=== PATIENT | male | born 1930 | race Caucasian/White ===

== ENCOUNTER 2017-07-13 13:35 | Inpatient (IN) | payer MEDICARE, OTHER ==
[~2017-07-13] VITALS: Ht 175.3 cm; Wt 77.2 kg
[~2017-07-13 13:35] MED LIST: ACID CONTROL150 MG PO; ADULT LOW DOSE81 MG PO; AMLODIPINE BESYL5 MG PO; AMOX TR-K CLV1 EACH PO; ASPIR-LOW81 MG PO; ASPIRIN EC81 MG PO; CALCIUM + VITA1 EACH PO; CALCIUM 600 +1 EA13 PO; CEFPODOXIME PR100 MG PO; CENTRUM SILVER1 EAC3 PO; CERTAVITE SR-A1 EACH PO; DULCOLAX10 MG PR; FINASTERIDE5 MG PO; FLEET ENEMA133 ML PR; FLOMAX0.4 MG PO; GLIPIZIDE XL10 MG PO; GLUCOPHAGE1000 MG PO; LABETALOL HCL300 MG PO; LANTUS100 UNITS/ SUB-Q; LIPITOR20 MG PO; LISINOPRIL20 MG PO; METFORMIN HCL1000 MG PO; METOPROLOL TART50 MG PO; MILK OF MA400 MG/5 M PO; MIRALAX17 GM PO; MULTI VITAMIN1 EACH PO; MUPIROCIN22 GM TOP; NOVOLOG100 UNIT/1 SUB-Q; NOVOLOG100 UNITS/ SUB-Q; NYAMYC15 GM TOP; NYSTATIN1 EAC1 PO; OYSCO 500+D TA1 EACH PO; PRESERVISION A1 EACH PO; PRESERVISION L1 EACH PO; PROSCAR5 MG PO; PROTONIX40 MG PO; SAW PALMETTO 1160 MG PO; SAW PALMETTO160 MG PO; SAW PALMETTO450 MG PO; SIMVASTATIN20 MG PO
[2017-07-13] MEDS ORDERED: FLOMAX0.4 MG PO (13:59)
[2017-07-13] MEDS ORDERED: GLUCAGON EMERGEN1 MG INJ (14:00)
[2017-07-13] MEDS ORDERED: MILK OF MA400 MG/5 M PO (14:02)
[2017-07-13] MEDS ORDERED: PRESERVISION A1 EACH PO (14:04)
[2017-07-13] MEDS ORDERED: PROTONIX40 MG PO (14:05)
[2017-07-14] MEDS ORDERED: HYDROCODON-ACE1 EA11 PO (14:09)
[2017-07-14] MEDS ORDERED: PETROLATUM30 GM TOP (14:32)
--- NOTE | 2017-07-16 07:38 | DS ---
[facility] [address] [place], [place] [address] Signed DATE OF ADMISSION: 07/13/17 DATE OF DISCHARGE: 07/14/17 ADMISSION DIAGNOSIS: Right femoral neck fracture. DISCHARGE DIAGNOSIS: Right femoral neck fracture. PROCEDURE PERFORMED DURING THIS HOSPITALIZATION None. 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 He sustained a fall somewhere around July 01 and did not really complain of too much pain until about 5 days ago. He does not walk and only transfers with maximal assist. He was seen in the ER where radiographs revealed a femoral neck fracture. He was admitted to my service. Due to his status in terms of not walking, his severe CVA and inability to follow any kind of precautions, I felt that he was not a good surgical candidate. This is a valgus impacted femoral neck fracture that appears stable and he is already walked on it or moved on it for 2 weeks. I think it is not in his best interest to proceed with surgery. I discussed this with the and daughter and they agreed. He will return to the nursing facility that he has been residing in. He will continue with his usual exercises and may transfer using the left lower extremity. I did put him on [place] 7.5 mg, which has been adequately treating his pain. We will send him home on his prehospitalization medications and the [place]. He will follow up with me in 14 days. Cielo Perez MD BA/Angela /[id number] cc: Victorino Whaley DO Electronically Signed By: CIELO PEREZ MD 07/16/17 0738 PATIENT NAME: TERESO GREGG DISCHARGE SUMMARY DATE OF : 30 PHYSICIAN: CIELO PEREZ MD REPORT #: [id number] REPORT IS CONFIDENTIAL AND NOT TO BE RELEASED WITHOUT AUTHORIZATION
--- NOTE | 2017-07-16 13:14 | EKG ---
[facility] [address] [place] [address] Signed Sinus rhythm with premature atrial complexes Inferior infarct , age undetermined Abnormal ECG When compared with ECG of 21-FEB-2017 10:14, Previous ECG has undetermined rhythm, needs review Inferior infarct is now present Confirmed by JOHNNY OLSEN MD ([id number]) on 07/16/2017 1:13:54 PM Electronically Signed By: JOHNNY OLSEN MD 07/16/17 1314 PATIENT NAME: NANCY GREGG Electrocardiogram DATE OF : 30 PHYSICIAN: JOHNNY OLSEN MD REPORT #: [id number] REPORT IS CONFIDENTIAL AND NOT TO BE RELEASED WITHOUT AUTHORIZATION
== END 2017-07-14 15:25 | disposition home or self-care (01) | DRG 535 ==
LOC: ED 13:35 → MS 15:22 → DS 15:22 → MS 16:27
PROVIDERS: ADMIT Specialist
DX: S72.001A Fracture of unspecified part of neck of right femur, initial encounter for closed fracture (principal); G93.40 Encephalopathy, unspecified; I69.351 Hemiplegia and hemiparesis following cerebral infarction affecting right dominant side; W19.XXXA Unspecified fall, initial encounter; E11.9 Type 2 diabetes mellitus without complications; E78.00 Pure hypercholesterolemia, unspecified; I48.0 Paroxysmal atrial fibrillation; Z79.82 Long term (current) use of aspirin
CPT/HCPCS: 71010; 80053; 81001; 85025; 85610; 87088; 93005; 93010; 97163; 97530

== ENCOUNTER 2017-09-24 03:18 | Emergency (ER) | payer MEDICARE, OTHER ==
[~2017-09-24] VITALS: Ht 175.3 cm; Wt 77.1 kg
[~2017-09-24 03:18] MED LIST changes: +GLUCAGON EMERGEN1 MG INJ; +HYDROCODON-ACE1 EA11 PO; +PETROLATUM30 GM TOP
== END 2017-09-24 04:20 | disposition home or self-care (01) ==
LOC: ED 03:18
DX: E11.649 Type 2 diabetes mellitus with hypoglycemia without coma (principal); E78.5 Hyperlipidemia, unspecified; I10 Essential (primary) hypertension; I48.91 Unspecified atrial fibrillation; Z86.73 Personal history of transient ischemic attack (TIA), and cerebral infarction without residual deficits; Z90.49 Acquired absence of other specified parts of digestive tract; Z79.899 Other long term (current) drug therapy; Z79.82 Long term (current) use of aspirin; Z79.4 Long term (current) use of insulin
CPT/HCPCS: 99284

== ENCOUNTER 2017-10-09 08:00 | Emergency (ER) | payer MEDICARE, OTHER ==
[~2017-10-09] VITALS: Ht 175.3 cm; Wt 77.1 kg
== END 2017-10-09 11:46 | disposition home or self-care (01) ==
LOC: ED 08:00
DX: E11.649 Type 2 diabetes mellitus with hypoglycemia without coma (principal); M84.459A Pathological fracture, hip, unspecified, initial encounter for fracture; I10 Essential (primary) hypertension; Z86.73 Personal history of transient ischemic attack (TIA), and cerebral infarction without residual deficits; I48.91 Unspecified atrial fibrillation; E78.5 Hyperlipidemia, unspecified; Z87.440 Personal history of urinary (tract) infections; Z90.49 Acquired absence of other specified parts of digestive tract; Z88.8 Allergy status to other drugs, medicaments and biological substances; Z79.84 Long term (current) use of oral hypoglycemic drugs; Z79.82 Long term (current) use of aspirin; Z79.4 Long term (current) use of insulin
CPT/HCPCS: 73502; 99283

== ENCOUNTER 2017-12-20 17:51 | Observation (INO) | payer MEDICARE, OTHER ==
[~2017-12-20] VITALS: Ht 175.3 cm; Wt 73.0 kg
[~2017-12-20 17:51] MED LIST changes: -ADULT LOW DOSE81 MG PO; +CHILDREN'S ASPI81 MG PO
--- NOTE | 2017-12-20 21:09 | NUR ---
PT ARRIVED TO ROOM 109 FROM ED. PT IS KNOWN TO THIS NURSE, FROM [facility]. PT WAS "UNRESPONIVE", WAS SENT TO ER BY AMBULANCE. PT HAS HAD HIS EYES OPEN, NON-VERBAL. HAS AN INDWELLING GONZALEZ, [facility] CHANGED GONZALEZ "2-3' WEEKS AGO, AND USUSALLY GETS GONZALEZ CHANGED EVERY 3 WEEKS. HAS A OLD FX HIP, RIGHT SIDE, NON REPAIRED. IS A SIT-STAND TRANSFER, W/C BOUND. PT "LALO" HAS BEEN ILL FOR COUPLE WEEKS, AND HASN'T SEEN PT IN THAT TIME FRAME. TODAY PT SON, JUAN AND DARIEN FISCHER FROM [facility] BOTH HERE AND AWARE OF THE "COMFORT CARE STATUS". HAVE NO QUESTIONS.
--- NOTE | 2017-12-20 22:08 | NUR ---
PATIENT RESTING COMFORTABLY IN BED, BREATHING IS EVEN AND UNLABORED. FLACC SCORE OF 0. PATIENT IS NON-VERBAL. ASSESSMENT DONE, CALL LIGHT WITHIN REACH.
[2017-12-20] MEDS ORDERED: ULTRAM50 MG PO ×2 (22:41)
[2017-12-20] MEDS ORDERED: TRAZODONE HCL50 MG PO ×2 (22:44)
[2017-12-20] MEDS ORDERED: METFORMIN HCL500 MG PO ×2 (22:46)
[2017-12-20] MEDS ORDERED: OSELTAMIVIR PHO75 MG PO ×2 (22:46)
--- NOTE | 2017-12-20 22:59 | NUR ---
PATIENT RESTING COMFORTABLY IN BED, BREATHING IS EVEN AND UNLABORED. FLACC SCORE OF 0. CALL LIGHT WITHIN REACH, CALL LIGHT WITHIN REACH.
--- NOTE | 2017-12-20 23:18 | EKG ---
[facility] [address] [facility] [place] [address] Signed Sinus tachycardia with premature atrial complexes Low voltage QRS Borderline ECG When compared with ECG of 13-JUL-2017 13:56, Criteria for Inferior infarct are no longer present Nonspecific T wave abnormality no longer evident in Inferior leads Confirmed by JOHNNY OLSEN MD ([id number]) on 12/20/2017 11:17:53 PM Electronically Signed By: JOHNNY OLSEN MD 12/20/17 2318 PATIENT NAME: NANCY GREGG Electrocardiogram DATE OF : 30 PHYSICIAN: JOHNNY OLSEN MD REPORT #: [id number] REPORT IS CONFIDENTIAL AND NOT TO BE RELEASED WITHOUT AUTHORIZATION
--- NOTE | 2017-12-21 00:32 | NUR ---
PATIENT RESTING COMFORTABLY IN BED, BREATHING IS EVEN AND UNLABORED. FLACC SCORE OF 0. CALL LIGHT WITHIN REACH.
--- NOTE | 2017-12-21 01:29 | NUR ---
PATIENT RESTING COMFORTABLY IN BED, BREATHING IS EVEN AND UNLABORED. FLACC SCORE OF 0. REPOSITIONED FOR COMFORT. CALL LIGHT WITHIN REACH.
--- NOTE | 2017-12-21 02:43 | NUR ---
PATIENT RESTING COMFORTABLY IN BED, BREATHING IS EVEN AND UNLABORED. FLACC SCORE OF 0. NO APPARENT SIGNS OF DISTRESS. CALL LIGHT WITHIN REACH.
--- NOTE | 2017-12-21 03:47 | NUR ---
PATIENT REPOSITIONED IN BED FOR COMFORT. SUCTIONED SECRETIONS FROM MOUTH. APPLIED CHAPSTICK, PROVIDED MOUTH SWAB FOR COMFORT. PATIENT APPEARS COMFORTABLE, FLACC SCORE OF 0. CALL LIGHT WITHIN REACH.
--- NOTE | 2017-12-21 06:18 | NUR ---
PATIENT RESTING COMFORTABLY IN BED, BREATHING IS EVEN AND UNLABORED. REPOSITIONED FOR COMFORT. FLACC SCORE OF 0. CALL LIGHT WITHIN REACH.
--- NOTE | 2017-12-21 06:21 | NUR ---
PATIENT'S NIGHT WAS UNEVENTFUL. HE HAS BEEN RESTING COMFORTABLY IN BED THROUGHOUT SHIFT. PATIENT HAS REMAINED COMFORTABLE AND REQUIRED NO PAIN MEDICATION THROUGHOUT NIGHT. FLACC SCORE OF 0 THROUGHOUT SHIFT. PATIENT IS NON-VERBAL. PATIENT HAS A-FIB. LUNGS ARE DIM, SATS ARE APPROPRIATE ON ROOM AIR. HAS LOOSE COUGH WITH WHITE SPUTUM. HAS CHRONIC GONZALEZ. BEDBOUND AT BASELINE. HAS IV FLUIDS INFUSING. NO ACUTE CHANGES.
--- NOTE | 2017-12-21 07:29 | EKG ---
[facility] [address] [facility] [place] [address] Signed Supraventricular tachycardia Nonspecific ST and T wave abnormality Abnormal ECG When compared with ECG of 20-DEC-2017 17:54, (Unconfirmed) premature atrial complexes are no longer present Vent. rate has increased BY 52 BPM Non-specific change in ST segment in Inferior leads ST now depressed in Anterior leads Nonspecific T wave abnormality now evident in Inferior leads Nonspecific T wave abnormality now evident in Anterior leads Confirmed by JOHNNY OLSEN MD ([id number]) on 12/21/2017 7:29:22 AM Electronically Signed By: JOHNNY OLSEN MD 12/21/17 0729 PATIENT NAME: NANCY GREGG Electrocardiogram DATE OF : 30 PHYSICIAN: JOHNNY OLSEN MD REPORT #: [id number] REPORT IS CONFIDENTIAL AND NOT TO BE RELEASED WITHOUT AUTHORIZATION
--- NOTE | 2017-12-21 07:29 | EKG ---
[facility] [address] [facility] [place] [address] Signed Atrial fibrillation Low voltage QRS Nonspecific T wave abnormality Abnormal ECG When compared with ECG of 20-DEC-2017 18:20, (Unconfirmed) Atrial fibrillation has replaced Sinus rhythm Vent. rate has decreased BY 57 BPM Non-specific change in ST segment in Inferior leads ST less depressed in Anterior leads Confirmed by JOHNNY OLSEN MD ([id number]) on 12/21/2017 7:29:33 AM Electronically Signed By: JOHNNY OLSEN MD 12/21/17 0729 PATIENT NAME: NANCY GREGG Electrocardiogram DATE OF : 30 PHYSICIAN: JOHNNY OLSEN MD REPORT #: [id number] REPORT IS CONFIDENTIAL AND NOT TO BE RELEASED WITHOUT AUTHORIZATION
--- NOTE | 2017-12-21 07:45 | NUR ---
BEDSIDE REPORT RECEIVED FROM FERNANDO. PATIENT RESTING IN BED. PATIENT APPEARS TO BE SLEEPING. RESPIRATION EVEN/UNLABORED. IV FLUID AND ABX INFUSING. GONZALEZ IN PLACE DRAINING WELL. WILL CONTINUE TO MONITOR.
--- NOTE | 2017-12-21 08:35 | NUR ---
IN TO ROOM TO ASSESS PATIENT. RESPONDED TO VERBAL STIMULI. OPEN EYES WHEN DIRECTED TO. LUNGS DIM TROUGHOUT. PATIENT WAS CHANGED AND REPOSITIONED, ORAL CARE DONE. CATH CARE ALSO DONE PATIENT IS NOT VERBAL, NO ABLE TO ANSWER QUESTION. IV SITE PATENT AND FLUID INFUSING WELL. WILL CONTINUE TO MONITOR.
--- NOTE | 2017-12-21 09:05 | NUR ---
PT IN BED, HOB ELEVATED. PT ATE 90% OF BREAKFAST. PT REPORTED GENERALIZED PAIN "ALL OVER", RATED PAIN 5/10. GAVE NORCO 5/325 MG 2 TABS PO PRN.
--- NOTE | 2017-12-21 10:55 | NUR ---
PATIENT RESTING IN BED AWAKE. RESPONDED TO COMMANDS. ORAL CARE DONE. IV ABX STARTED.NO APPARENT DISTRESS. WILL CONTINUE TO MONITOR.
--- NOTE | 2017-12-21 12:41 | NUR ---
PATIENT REPOSITIONED. ORAL CARE DONE. IV SITE PATIENT, FLUID AND ABX INFUSING WELL. PATIENT OPEN EYES WHEN TALKING TO. NO DISTRESS. WILL CONTINUE TO MONITOR.
[2017-12-21] MEDS ORDERED: SENNA8.6 MG PO ×2 (13:58)
--- NOTE | 2017-12-21 14:02 | NUR ---
DR OLSEN WAS IN ROOM TO EVALUATE PATIENT. PATIENT STILL DROWZY AND SOMNOLENT.
--- NOTE | 2017-12-21 15:27 | NUR ---
PATIENT WAS REPOSITIONED, ORAL CARE DONE.
[2017-12-21] MEDS ORDERED: AMLODIPINE BESYL5 MG PO ×2 (15:55)
[2017-12-21] MEDS ORDERED: TAMSULOSIN HCL0.4 MG PO ×2 (16:00)
[2017-12-21] MEDS ORDERED: BISAC-EVAC10 MG PR ×2 (16:05)
[2017-12-21] MEDS ORDERED: EXTRA STRENGTH500 MG PO ×2 (16:06)
--- NOTE | 2017-12-21 16:07 | NUR ---
Medications reconciled by pharmacist using MARS from facility
--- NOTE | 2017-12-21 17:43 | NUR ---
PATIENT WAS CHANGED AND REPOSITIONED. ORAL CARE DONE. UPDATED FAMILY ABOUT PLAN TO DO A SWALLOW EVAL IN AM BEFORE TRYING FEEDING PATIENT.
--- NOTE | 2017-12-21 17:57 | NUR ---
PATIENT HAD A FAIR DAY. WAS REPOSITIONED EVERY 2HRS. HAD 2 BMs TODAY. CHRONIC GONZALEZ IN PLACE. LOW URINE OUTPUT. MD AWARE. PATIENT RESPOND TO COMMANDS, OPEN EYES AND SOMETIMES ANSWERED TO YES AND NO QUESTION. STILL SOMNOLENT. IV SITES PATENT, FLUID AND ABX INFUSING WELL. SWALLOW EVAL IN AM. PATIENT IS NPO AT THIS TIME. FAMILY IS WAITING ON OTHER FAMILY MEMBERS TO MAKE FINAL DECISION FOR COMFORT CARE MEASURE.
--- NOTE | 2017-12-21 19:10 | NUR ---
RECEIVED REPORT, FAMILY IN ROOM, BED RAILS UP AND CALL LIGHT IS WITHIN REACH. NO REQUESTS AT THIS TIME.
--- NOTE | 2017-12-21 22:00 | NUR ---
FAMILY IN ROOM, PT'S EYES ARE OPEN AND IS ANSWERING QUESTIONS AT TIMES WITH A "YEAH" OR "NO". PT DENIES PAIN AND FAMILY AGREES. ATTENDS WERE CHANGED, AND PT WAS REPOSITIONED. FAMILY STATES DAUGHTER IS HEADED TO SEE HIM TONIGHT. FAMILY HAS NO REQUESTS AT THIS TIME.
--- NOTE | 2017-12-22 00:12 | NUR ---
REPOSITIONED PT IN BED, HE SAYS HE IS NOT IN PAIN. FAMILY IN ROOM. NO REQUESTS AT THIS TIME.
--- NOTE | 2017-12-22 02:10 | NUR ---
THIS RN WAS NOTIFIED THAT A NEW BAG OF FLUID WAS HUNG AND PT WAS REPOSITIONED IN BED.
--- NOTE | 2017-12-22 03:30 | NUR ---
PT IS RESTING AWAKE IN BED, FAMILY IN ROOM. PROVIDED ORAL CARE. PT AND FAMILY HAVE NO REQUESTS AT THIS TIME.
--- NOTE | 2017-12-22 06:37 | NUR ---
PT RESTED ON AND OFF THROUGH THE NIGHT IN BETWEEN TURNS, FAMILY STAYED WITH PT THROUGH THE NIGHT FOR SUPPORT. PT HAD LOW URINE OUTPUT THROUGH GONZALEZ CATH. NO FURTHER CHANGES AT THIS TIME.
--- NOTE | 2017-12-22 09:09 | NUR ---
ASSISTED NURSE SANDRAENE IN GIVING THE PT A COMPLETE BED BATH, ELOY CARE, ORAL CARE, AND LINEN CHANGE. PT WAS THEN REPOSISTIONED HIGHER IN THE BED AND ON HIS RIGHT SIDE. PT IS NOW RESTING SAFELY WITH CALL LIGHT IN REACH AND FAMILY IN ROOM.
--- NOTE | 2017-12-22 09:15 | NUR ---
PATIENT WAS CHANGED AND REPOSITIONED AND BED BATH DONE. SHIFT ASSESSMENT DONE. LUNGS DIM. PATIENT WAS ABLE TO ANSWER YES AND NO WHEN ASKED ABOUT PAIN. PATIENT OPEN EYES AND MOVED UPPER AND LOWER EXTREMITIES. PATIENT HAD 1BM. GONZALEZ CARE DONE WELL ORAL CARE. LINEN CHANGED. FAMILY AT BEDSIDE.
--- NOTE | 2017-12-22 10:33 | NUR ---
MEDICARE OUTPATIENT OBSERVATION NOTICE READ AND SIGNED BY FAMILY AND A COPY OF THE LETTER GIVEN TO FAMILY AND ORIGINAL IS IN HIS CHART.
--- NOTE | 2017-12-22 10:59 | NUR ---
PATIENT RESTING IN BED. EYES CLOSED, RR EVEN/UNLABORED. ABX AND FLUID INFUSING. NO APPARENT DISTRESS. FAMILY AT BEDSIDE. WILL CONTINUE TO MONITOR.
--- NOTE | 2017-12-22 11:43 | NUR ---
FAMILY REFUSED SWALLOW EVAL AND DO NOT WISH FOR HARRIET TO HAVE ANY ORAL INTAKE AT THIS TIME. I PROVIDED EDUCATION REGARDING DYSPHAGIA AT END OF LIFE AND WAYS TO ATTEMPT TO INCREASE ACCURACY OF YES/NO COMMUNICATION USING VISUALS AND/OR CARDS. I ALSO INFORMED THEM THAT IF THEY CHANGE THEIR MIND AND WOULD LIKE FOR HARRIET TO HAVE A SWALLOW EVAL OR IF THEY THINK OF ANY QUESTIONS RE: ORAL INTAKE TO INFORM NSG AND I WILL REVISIT.
--- NOTE | 2017-12-22 11:55 | NUR ---
patient tolerated shower well. patient requesting to be in own clothing tolerated another walk in mckeon. remains pain free. patient currently having lunch in her chair. no other complaints at this time.
--- NOTE | 2017-12-22 12:12 | NUR ---
BRIANNE AND I REPOSITIONED HIM ALSO CHECKED HIS UNDERGARMENTS AND IT WAS DRY. PATIENT IS NOW SLEEPING.
--- NOTE | 2017-12-22 14:10 | NUR ---
PATIENT WAS CHANGED, REPOSITIONED. ORAL CARE DONE. FAMILY IN ROOM. PATIENT STILL RESPONSIVE TO STIMULI.
--- NOTE | 2017-12-22 14:36 | NUR ---
SAW PT'S SON JUAN, HE ASKED TO HAVE ME COME BY. THE FAMILY WAS ALL GATHERED, THANKED ME FOR COMING BY. LALO MENTIONED THAT SHE IS CONTERNED THAT THESE ARE HIS LAST DAYS. NEEEDED TO MAKE SOME FONAL ARRANGEMENTS. GAVE SOME SUGGESTIONS AND BEGAN TO GUIDE THEM TO CONSENSUS. [facility] WAS CHOSEN, AND NO CREMATION-VERY STRONGLY WORDED. PROVIDED FAMILY WITH END OF LIFE PLANNING GUIDE, HAD PRAYER TOGETHER. WILL FOLLOW NEEDED
--- NOTE | 2017-12-22 16:15 | NUR ---
PATIENT WAS CHANGED AND REPOSITIONED. BED LINEN WAS CHANGED. FAMILY IN ROOM. WILL CONITUNE TO MONITOR.
--- NOTE | 2017-12-22 18:56 | NUR ---
PATIENT IS COMFORT CARE NOW. REPOSITIONED Q 2HRS. GONZALEZ STILL IN PLACE. FAMILY IN ROOM MOST OF THE DAY. PATIENT HAD MULTIPLE BM. ORAL CARE TO BE DONE WHEN REPOSITIONING PATIENT.
--- NOTE | 2017-12-22 20:00 | NUR ---
RECEIVED REPORT AT 1900, FOUND PT IN BED WITH FAMILY AT BEDSIDE. PT WAS HOLDING HIS HEAD. PT APPEARED TO HAVE PAIN ON HIS HEAD. PRN PAIN MED WILL BE GIVEN.
--- NOTE | 2017-12-22 23:24 | NUR ---
TYLENOL SUPP PRN WAS GIVEN. PT WAS TURNED AND PT WAS CHANGED DUE TO BM. PT WAS ALSO SUCTIONED. PT IS RESTING NOW, SON AT BEDSIDE.
--- NOTE | 2017-12-23 01:10 | NUR ---
PT TURNED. SON STATED THAT HE HAS BEEN TALKING WITH HIM SOME. PT SEEMS COMFORTABLE AT THIS TIME.
--- NOTE | 2017-12-23 02:07 | NUR ---
MORE FAMILY HAS ARRIVED TO SEE PT. PT HAS BEEN A LITTLE RESTLESS STATED BY SON. ATIVAN PRN WILL BE GIVEN WHEN FAMILY LEAVES AND PT IS STILL RESTLESS
--- NOTE | 2017-12-23 04:08 | NUR ---
PT AT THIS TIME IS SLEEPING.
--- NOTE | 2017-12-23 05:05 | NUR ---
PT OVERALL HAD RESTFUL NIGHT. FAMILY HAS BEEN AT BEDSIDE ALL NIGHT. PT HAS BEEN TURNED NEEDED. PT NEEDED SUCTION SEVERAL TIMES THIS SHIFT. PT HAS TIMES OF ALERTNESS AND IS ANSWERING QUESTIONS WITH YES OR NO. PT HAS SLEPT SOME THIS SHIFT. FAMILY WILL LET US KNOW IF HE SEEMS UNCOMFORTABLE OR AGITATED.
--- NOTE | 2017-12-23 07:44 | NUR ---
BEDSIDE REPORT RECEIVED FROM PAUL. PATIENT APPEARS TO BE SLEEPING, RR EVEN/UNLABORED. FAMILY IN ROOM.
--- NOTE | 2017-12-23 08:41 | NUR ---
Patient resting in bed, two guards at bedside. Encouraged to get up and walk today, stated that he will this afternoon. Refused any pain medication at this time, but would like to try tylenol later. Pain currently 04/30.
--- NOTE | 2017-12-23 09:00 | NUR ---
SPOKE WITH DR OLSEN WHO STATED PATIENT SHOULD BE DISCHARGED BACK TO FACILITY TODAY ON HOSPICE. SHE STATED PATIENTS ASKED YESTERDAY IF PATIENT CAN STAY HERE. CALLED [facility] WHERE PATIENT RESIDES. SPOKE WITH DARINEL, DIRECTOR. SHE STATES THEY ARE ABLE TO TAKE PATIENT BACK TO FACILITY IF HE IS ON HOSPICE. CALLED HOME HEALTH DEPARTMENT, SPOKE WITH REINALDO, ACUTE CARE NURSING ASSISTANT. SHE STATES PATIENT HAS BEEN ON HOME HEALTH, THEY CAN COME SPEAK WITH FAMILY AND THEY CAN MOVE PATIENT TO HOSPICE IF HE GOES BACK ON HOSPICE.
--- NOTE | 2017-12-23 09:45 | NUR ---
PATIENT WAS CHANGED AND REPOSITIONED. ELOY CARE, CATH CARE AND ORAL CARE DONE. ORAL SUCTION WAS DONE WITH ORAL CARE. PATIENT RESPONDED YES WHEN ASKE ABOUT PAIN. PATIENT'S FAMILY AGREED THAT HE SAID YES WHEN ASKED ABOUT PAIN. PATIENT WAS MEDICATED. ROOM CLEANED. PATIENT RESTING CONFORTABELY AT THIS TIME. WILL CONTINUE TO MONITOR.
--- NOTE | 2017-12-23 10:20 | NUR ---
MET WITH PATIENTS DAUGHTERMAYA. PATIENTS IS NOT HERE AT THIS TIME. DISCUSSED WITH DAUGHTER THAT DOCTOR IS READY FOR DISCHARGE AND THE FACILITY CAN TAKE HIM BACK ON HOSPICE AND HOSPICE CAN COME AND SPEAK WITH THE FAMILY IF THIS IS AGREEABLE. SHE STATES SHE THINKS THAT WILL BE FINE, SHE WILL CALL HER STEPMOTHER AND SPEAK WITH HER. QUESTIONS ANSWERED. UPDATED DR OLSEN.
--- NOTE | 2017-12-23 11:04 | NUR ---
NURSE AND I CHANGED HIM AND TURNED HIM AND ALSO THE NURSE DID AM CARE. WE ALSO DID CATH CARE. AROUND 929.
--- NOTE | 2017-12-23 12:15 | NUR ---
SPOKE WITH PATIENTS LALO AND DAUGHTER IN ROOM. THEY STATE THEY WOULD LIKE PATIENT TO GO ON HOSPICE. WE DISCUSSED WHAT THIS ENTAILES, QUESTIONS ANSWERED. WOULD LIKE PATIENT TO REMAIN IN HOSPITAL IF POSSIBLE. DISCUSSED THAT THIS IS POSSIBLE, BUT THEY WOULD BE RESPONSIBLE FOR BILLING. DISCUSSED THAT HOSPICE RATE IS APPROXIMATELY 300/DAY. SHE STATES SHE IS ABLE TO PAY THAT AND WOULD LIKE HIM TO STAY. WE DISCUSSED HER SECONDARY INSURANCE AND THAT IT MIGHT NOT [employer] THEIR PORTION. SHE STATES UNDERSTANDING. THEY ALL STATE THEY ARE VERY HAPPY WITH THE CARE PATIENT IS RECEIVING AND ARE WORRIED ABOUT RETURNING TO THE FACILITY DUE TO FLU OUTBREAK. SPOKE WITH REINALDO FROM HOSPICE AND THEY WILL BE ABLE TO ADMIT PATIENT TO HOSPICE TOMORROW. UPDATED DR OLSEN AND STAFF NURSE.
--- NOTE | 2017-12-23 12:35 | NUR ---
PATIENT WAS SLEEPING SO GOOD SO THE NURSE AND I WILL COME BACK AROUND 1330. AND TURN HIM AND CHECK HIM.
--- NOTE | 2017-12-23 13:22 | NUR ---
PATIENT WAS CHANGED AND REPOSITIONED. ORAL CARE. FAMILY AT BEDSIDE. PATIENT STILL RESPONDED TO STIMULI, OPEN HIS WHEN TALKING TO.
--- NOTE | 2017-12-23 13:42 | NUR ---
DARINEL FROM [facility] CALLED AND HAD CONCERNS THAT THEY MIGHT NOT HAVE ENOUGH STAFF FOR A COUPLE DAYS TO TAKE PATIENT BACK DUE TO FLU OUTBREAK. DISCUSSED WITH HER THAT PATIENT WILL REMAIN HERE AND HOSPICE WILL ADMIT HIM TOMORROW AND HE WILL STAY HERE THROUGH THE WEEKEND.
--- NOTE | 2017-12-23 14:22 | NUR ---
PT HAS BEEN PLACED ON HOSPICE SERVICE. PT UNRESPONSIVE, LOTS OF FAMILY WITH HIM, OFTEN AROUND THE CLOCK. PLACED FAMILY'S WISHES IN HIS CHART-[facility] [employer] [facility] [employer]. WILL FOLLOW NEEDED
--- NOTE | 2017-12-23 14:26 | NUR ---
Notified by case management patient is declining rapidly and family do not want to return him to [facility]. Hospice visit to speak with family and discussed returning pt to assisted living vs self pay at respite rate and placing pt on hospice. Family prefer to not move patient and will self pay at rate of $300 per day. Pt has influenza B and recent [place] with elevated triponin. Pt no longer eating, or drinking. Scant urine out. Plan to admit 12/24/16 to hospice. Kandi Cruz Director Hospice
--- NOTE | 2017-12-23 14:44 | NUR ---
UPDATED FAMILY ON PATIENT BEING ADMITTED TOMORROW TO HOSPICE. THEY STATE UNDERSTANDING. THEY WERE VISITED BY RE[facility]DO [facility] VASCULAR SURGERY PHYSICIAN. SEE HER NURSES NOTE ENTRY.
--- NOTE | 2017-12-23 18:30 | NUR ---
PATIENT HAD A FAIR DAY. HAVE BEEN REPOSITIONED EVERY 2HOURS. ORAL CARE, ELOY CARE DONE WHEN REPOSITIONED. FAMILY AT BEDSIDE AT ALL TIME.
--- NOTE | 2017-12-23 19:32 | NUR ---
PATIENT WAS REPOSITIONED AND WAS MEDICATED FOR PAIN BASE ON FACE SCALE ASSESSMENT. ORAL CARE DONE. FAMILY AT BEDSIDE.
--- NOTE | 2017-12-23 20:00 | NUR ---
RECEIVED REPORT AT 1900. DAUGHTER AT BEDSIDE. PT WAS SLEEPING. NO NEEDS IDENTIFIED AT THIS TIME.
--- NOTE | 2017-12-23 22:00 | NUR ---
PT IS STILL SLEEPING. NO FAMILY IN ROOM AT THIS TIME.
--- NOTE | 2017-12-24 00:30 | NUR ---
PT WAS TURNED. PT IS STILL SLEEPING.
--- NOTE | 2017-12-24 02:00 | NUR ---
ORAL CARE HAS BEEN DONE, PT HAS BEEN TURNED. PT DENIES PAIN AND STATED THAT HE IS COMFORTABLE. HE ANSWERED QUESTIONS WITH "YES" AND "NO". PT IS RESTING NOW.
--- NOTE | 2017-12-24 04:10 | NUR ---
PT APPEARS TO BE SLEEPING.
--- NOTE | 2017-12-24 05:15 | NUR ---
PT WAS TURNED AGAIN. ORAL CARE WAS DONE. PT SAID "NO" TO PAIN. OVERALL PT HAD A CALM NIGHT. PT DID NOT NEED ANY SUCTIONING OR MEDICATION. PT SEEMS MORE ALERT THIS SHIFT THAN LAST. FAMILY WAS NOT PRESENT THIS SHIFT. URINE OUTPUT FOR THIS SHIFT WAS 350ML.
--- NOTE | 2017-12-24 07:48 | NUR ---
BEDSIDE REPORT RECEIVED FROM PAUL. PATIENT RESTING IN BED, NO CHANGE FROM YESTERDAY. STILL AWAKE RESPONDED YES AND NO. FAMILY IN ROOM.
--- NOTE | 2017-12-24 09:24 | NUR ---
PATIENT WAS CHANGED AND REPOSITIONED. ORAL CARE AND ELOY CARE DONE. PATIENT RESTING IN BED COMFORTABLE AT THIS TIME. HOSPICE NURSE IN ROOM DOING ASSESSMENT.
== END 2017-12-24 11:00 | disposition admitted as inpatient to this hospital (09) ==
LOC: ED 17:51 → MS 17:52
PROVIDERS: ADMIT Internal Medicine
DX: A41.89 Other specified sepsis (principal); J10.1 Influenza due to other identified influenza virus with other respiratory manifestations; N17.9 Acute kidney failure, unspecified; J96.01 Acute respiratory failure with hypoxia; I48.91 Unspecified atrial fibrillation; I47.1 Supraventricular tachycardia; Z51.5 Encounter for palliative care; F03.90 Unspecified dementia, unspecified severity, without behavioral disturbance, psychotic disturbance, mood disturbance, and anxiety; E11.9 Type 2 diabetes mellitus without complications; E78.5 Hyperlipidemia, unspecified; S72.001A Fracture of unspecified part of neck of right femur, initial encounter for closed fracture; I10 Essential (primary) hypertension; N40.0 Benign prostatic hyperplasia without lower urinary tract symptoms; Z96.0 Presence of urogenital implants; Z86.73 Personal history of transient ischemic attack (TIA), and cerebral infarction without residual deficits; Z88.8 Allergy status to other drugs, medicaments and biological substances; Z79.82 Long term (current) use of aspirin; Z79.4 Long term (current) use of insulin; Z79.899 Other long term (current) drug therapy; Z91.81 History of falling; Z74.01 Bed confinement status; Z99.3 Dependence on wheelchair
CPT/HCPCS: 71045; 80053; 81001; 83605; 84484; 85025; 87040; 87088; 87502; 93005; 93010; 96361; 96365; 96366; 96375; 96376; 99285; G0378; J2543; J7030

== ENCOUNTER 2017-12-24 11:00 | Inpatient (IN) | payer SELFPAY ==
--- NOTE | 2017-12-23 15:00 | NUR ---
Hospice visit to speak with family and assess pt. for Hospice. Pt has Influenza B and +AL. Pt does not respond to questions. Family are not wanting to return pt to [facility] as pt is very ill. Discussed family can self pay for room and we will provide hospice in the hospital. Family would like hospice and we will admit tomorrow at 10:00.
[~2017-12-24] VITALS: Ht 175.3 cm; Wt 73.0 kg
[~2017-12-24 11:00] MED LIST changes: +BISAC-EVAC10 MG PR; +EXTRA STRENGTH500 MG PO; +METFORMIN HCL500 MG PO; +OSELTAMIVIR PHO75 MG PO; +SENNA8.6 MG PO; +TAMSULOSIN HCL0.4 MG PO; +TRAZODONE HCL50 MG PO; +ULTRAM50 MG PO
--- NOTE | 2017-12-24 13:02 | NUR ---
PATIENT WAS REPOSITIONED. ORAL CARE DONE. WARM BLANKET PROVIDED. FAMILY AT BEDSIDE.
--- NOTE | 2017-12-24 14:35 | NUR ---
FAMILY REPORTS THAT PATIENT IS TENSED AND HE SEEMED TO BE IN PAIN. MORPHINE SUBLINGUAL ADMINISTERED. PATIENT RESTING IN BED AT THIS TIME. FAMILY IN ROOM.
--- NOTE | 2017-12-24 16:00 | NUR ---
HANDOFF REPORT RECEIVED FROM RN. PT TURNED TO LEFT SIDE. PT MOANING OUT, FAMILY REQUESTING PAIN MEDICATION, 5MG SL MORPHINE GIVEN. FAMILY DENIES OTHER NEEDS AT THIS TIME.
--- NOTE | 2017-12-24 18:22 | NUR ---
PT TURNED AND PUULED UP IN BED. DAUGHTER PROVIDED WITH TV REMOTE. DENIES OTHER NEEDS AT THIS TIME. PT APPEARS COMFORTABLE.
--- NOTE | 2017-12-24 18:23 | NUR ---
PT TRANSITIONED TO HOSPICE CARE. PT ON ROOM AIR. SLOW TO RESPOND AT BASELINE. PT GIVEN 5 MG SUBLINGUAL MORPHINE FOR PAIN. DAUGHTER AT BEDSIDE. Q2H TURNS. PT WITH CHRONIC GONZALEZ IN PLACE.
--- NOTE | 2017-12-24 18:55 | NUR ---
RECEIVED REPORT FROM CINDY MCKEON. PATIENT IS RESTING COMFORTABLY IN BED, BREATHING IS EVEN AND UNLABORED. FLACC SCORE OF 0. FAMILY AT BEDSIDE, CALL LIGHT WITHIN REACH.
--- NOTE | 2017-12-24 20:30 | NUR ---
PATIENT RESTING COMFORTABLY IN BED, BREATHING IS EVEN AND UNLABORED. REPOSITIONED PATIENT ON LEFT SIDE FOR COMFORT, ORAL CARE DONE. PATIENT APPEARS COMFORTABLE, FLACC SCORE OF 0. FAMILY AT BEDSIDE.
--- NOTE | 2017-12-24 22:30 | NUR ---
PATIENT'S FAMILY REPORTS PATIENT HAD A "COUGHING FIT," NOW HAS SECRETIONS IN MOUTH, SUCTION DONE. PATIENT TOLERATED WELL. RESTING COMFORTABLY IN BED, BREATHING IS EVEN AND UNLABORED. FLACC SCORE OF 0. CALL LIGHT WITHIN REACH.
--- NOTE | 2017-12-24 23:55 | NUR ---
PATIENT RESTING COMFORTABLY IN BED, BREATHING IS EVEN AND UNLABORED. FLACC SCORE OF 0. REPOSITIONED ON RIGHT SIDE FOR COMFORT. FAMILY AT BEDSIDE.
--- NOTE | 2017-12-25 02:05 | NUR ---
PATIENT RESTING COMFORTABLY IN BED, BREATHING IS EVEN AND UNLABORED. REPOSITIONED ON LEFT SIDE FOR COMFORT. PATIENT APPEARS COMFORTABLE, FLACC SCORE OF 0. ORAL CARE DONE. CALL LIGHT WITHIN REACH, FAMILY AT BEDSIDE.
--- NOTE | 2017-12-25 04:26 | NUR ---
PATIENT RESTING IN BED, BREATHING IS EVEN AND UNLABORED. REPOSITIONED ON RIGHT SIDE FOR COMFORT. FLACC SCORE OF 5, PRN SL MORPHINE GIVEN PER EMAR. FAMILY AT BEDSIDE.
--- NOTE | 2017-12-25 04:29 | NUR ---
PATIENT'S NIGHT WAS UNEVENTFUL. HE HAS BEEN RESTING IN BED THORUGHOUT SHIFT. PAIN HAS BEEN WELL CONTROLLED WITH PRN SL MORPHINE. REQUIRES Q2 HOUR TURNS FOR COMFORT AND FREQUENT ORAL CARE. NO ACUTE CHANGES FROM BEGINNING OF SHIFT.
--- NOTE | 2017-12-25 04:38 | NUR ---
CINDY KING AND I REPOSITIONED PATIENT FACING RIGHT. EMPTIED GONZALEZ. FAMILY IN ROOM.
--- NOTE | 2017-12-25 07:10 | NUR ---
BEDSIDE HANDOFF REPORT RECEIVED FROM DOUGH CATCHER RN. PT RESTING COMFORTABLY IN BED, DAUGHTER AT BEDSIDE.
--- NOTE | 2017-12-25 08:30 | NUR ---
PT FAMILY REQUESTING PAIN MEDICATION. GIVEN 5 MG SL MORPHINE. PT ALERT. FAMILY DENIES OTHER NEEDS AT THIS TIME.
--- NOTE | 2017-12-25 09:45 | NUR ---
PT TURNED TO LEFT SIDE. ASSSESSED FOR BOWEL MOVEMENT, ATTENDS CLEAN. FAMILY AT BEDSIDE. DISCUSSED PLAN TO BATHE LATER.
--- NOTE | 2017-12-25 11:51 | NUR ---
PT BATHED AND POSITIONED TO LEFT SIDE. GONZALEZ CARE COMPLETED. PT WITH BLANCHABLE REDNESS TO BILATERAL HIPS. BARRIER CREAM APPLIED TO PERIAREA. FAMILY AT BEDSIDE, DENIES OTHER NEEDS AT THIS TIME.
--- NOTE | 2017-12-25 14:10 | NUR ---
PT TURNED TO RIGHT SIDE. PT PROVIDED SIPS OF WATER. FAMILY AT BEDSIDE. DENIES OTHER NEEDS AT THIS TIME.
--- NOTE | 2017-12-25 16:18 | NUR ---
PT TURNED TO RIGHT SIDE. PT ASSESSED FOR PAIN, PT STATES "NO" WHEN ASKED IF HE IS HAVING PAIN, FAMILY AGREES THAT THEY FEEL HE APPEARS COMFORTABLE. PT ASSESSED FOR BOWEL MOVEMENT, INCONTINENT PAD CLEAN. FAMILY DENIES OTHER NEEDS AT THIS TIME.
--- NOTE | 2017-12-25 17:13 | NUR ---
PT TURNED Q2H FOR COMFORT, WITHOUT BM TODAY, SKIN WITH BLACHABLE REDNESS AT TROCANTER PROMINENCE. PT GIVEN SL MORPHINE 5MG X1 THIS MORNING. PT ALERT FOR MOST OF THE DAY. TOLERATING SIPS OF WATER. CHRONIC GONZALEZ DRAINING FREELY. HOSPICE NURSE ROUNDED ON PT TODAY.
--- NOTE | 2017-12-25 19:30 | NUR ---
RECEIVED REPORT FROM CINDY MELVIN. PT IN BED WITH VISITORS, HIS DAUGHTER AND FRIEND KATHY. PT TURNED AT THIS TIME. HAD EYES OPEN AND TRIED TO RESPOND WHEN TALKED TO. GONZALEZ WITH ALLEGRA URINE.
--- NOTE | 2017-12-25 23:00 | NUR ---
PT WITH EYES CLOSED, RESP EVEN AND UNLABORED.
--- NOTE | 2017-12-26 00:50 | NUR ---
ASSESSED PT PAIN, ASKED VARIETY OF QUESTIONS, ALL TO WHICH HE REPLIED NO R/T PAIN. DAUGHTER IN ROOM, STATES SHE DOESN'T THINK HE IS IN PAIN, WILL REPORT TO RN IF SHE THINKS HE IS IN PAIN, BUT SAID THAT HE LOOKS RELAXED. WILL NOT GIVE PAIN MEDS AT THIS TIME.
--- NOTE | 2017-12-26 01:30 | NUR ---
PT TURNED, MOSTLY SLEEPY.
--- NOTE | 2017-12-26 04:30 | NUR ---
EYES CLOSED, RESP EVEN AND UNLABORED.
--- NOTE | 2017-12-26 06:26 | NUR ---
PT SLEPT IN BETWEEN TURNING. GONZALEZ REMAINED PATENT. NO PAIN MEDS REQUIRED THIS SHIFT, RESP EVEN AND UNLABORED WHEN CHECKED ON.
--- NOTE | 2017-12-26 07:45 | NUR ---
RN IN ROOM WITH STUDENT NURSE. NO OTHER NEEDS AT THIS TIME.
--- NOTE | 2017-12-26 07:51 | NUR ---
BEDSIDE REPORT. PT RESTING IN BED, DAUGHTER AT BEDSIDE, REPORTS PAIN IS NOT IN PAIN AT THIS TIME. NO REQUESTS, NO DISTRESS NOTED
--- NOTE | 2017-12-26 08:30 | NUR ---
patient sitting up in bed with family in room. RN in room talking to family. No other needs at this time.
--- NOTE | 2017-12-26 08:33 | NUR ---
CALL LIGHT ON. PT FAMILY REQUESTS PAIN MEDICATION. PT ASSESSED, FACES PAIN SCALE USED. PAIN SCORE OF 5/10. PAIN MEDICATION GIVEN (SEE MAR). FAMILY AT BEDSIDE. NO FURTHER REQUESTS OR COMPLAINTS AT THIS TIME.
--- NOTE | 2017-12-26 08:37 | NUR ---
PT REPOSISIONED. PILLOWS PLACED UNDER LEFT SIDE. PT TOLERATED WELL. PT YES "YEAH" WHEN ASKED IF POSITIONING FEELS OK.
--- NOTE | 2017-12-26 09:30 | NUR ---
CLEAR INSURE PROVIDED FOR PT PER FAMILY REQUEST. PT BOOSTED UP IN BED AND SITTING AT 70 DEGREES. PT OBSERVED USING STRAW TO DRINK ENSURE. NO FURTHER REQUESTS OR COPLAINTS AT THIS TIME.
--- NOTE | 2017-12-26 10:30 | NUR ---
SPOKE WITH AND DAUGHTER IN ROOM. ALSO IN THERE WAS JOSH HSIEH FROM [facility] DE[facility]. THEY ARE ALL TALKING ABOUT MOVING PATIENT BACK TO FACILITY TODAY OR TOMORROW. IS LOOKING AT HIRING EXTRA CAREGIVERS WHEN PATIENT RETURNS TO FACILITY. SPOKE WITH DARINEL FROM [facility]. SHE STATES HER RN WILL BE THERE TOMORROW AND SHE WILL HAVE HER COME AND EVALUATE PATIENT BEFORE HE CAN RETURN. UPDATED STAFF AND DR BOLDEN.
--- NOTE | 2017-12-26 10:55 | NUR ---
CBG TAKEN PER FAMILY REQUEST. VALUE FOUND TO BE 169. FAMILY STATES THIS IS WITHIN HIS NORMAL RANGE. PT SAYS "YEAH" WHEN ASKED IF HE IS COMFORTABLE. BED RAILS UP. CALL LIGHT WITHIN REACH.
--- NOTE | 2017-12-26 11:37 | NUR ---
PT TURNED. PT NOW SUPINE. PT RESTING WITH EYES CLOSED. CHEST RISE NOTED. PT AWAKENS WITH TURNING. WHEN ASKED IF HE IS COMFORTALBE PT SAYS "YEAH" WHEN ASKED IF HE NEEDS ANYTHING PT SAYS "NO."
--- NOTE | 2017-12-26 13:10 | NUR ---
PT TURNED. PT NOW SUPINE WITH HIPS FLOATING (PILLOW UNDER BOTH HIPS). BACK ASSESED. STAGE TWO PRESSURE ULCER NOTED ON MID BACK. DRESSING CHANGED (ALLEVYN). NONBLANCHABLE REDDENED AREA NOTED AT COCCYX AND BETWEEN BUTTOX. NO DRESSING AT THIS TIME. PT RESTING WITH EYES CLOSED. CHEST RISE NOTED. BED RAILS UP. CALL LIGHT WITIN REACH. DAUGHTER AT BEDSIDE.
--- NOTE | 2017-12-26 13:31 | NUR ---
PT HAS IMPROVED OVER THE WEEKEND TO THE POINT WHERE HE MAY BE DC'D BACK TO [facility] COMFORT CARE. NO FAMILY IN THIS MORNING, PT ASLEEP, VOICED A PRAYER FOR HIM. WILL FOLLOW NEEDED
--- NOTE | 2017-12-26 14:31 | NUR ---
CHECKED IN ON PT AND FAMILY. PT RESTING WITH EYES CLOSED. CHEST RISE NOTED. DAUGHTER HOLDING PTS HAND. DAUGHTER STATES PT APPEARS COMFORTABLE AND NOTHING IS NEEDED AT THIS TIME.
--- NOTE | 2017-12-26 16:03 | NUR ---
PT TURNED, HIPS FLOATING. PT ON LEFT SIDE. FAMILY AT BEDSIDE TALKING WITH HOSPICE. FINANCIAL SERVICES AGENT AT BEDSIDE. PT EYES OPEN BUT NOT RESPODING VERBALLY TO QUESTIONS. PT FALLS EASILY BACK TO SLEEP. RR 16 BREATHS PER MINUTE. BED RAILS UP. CALL LIGHT WITHIN REACH.
--- NOTE | 2017-12-26 17:21 | NUR ---
PT HERE FOR COMFORT CARE. FAMILY AT [facility] THROUGHOUT THE DAY. HOSPICE IN TO CONSULT AND PLAN WITH PT AND FAMILY. PT OPENS EYES AND WILL RESPOND OCCATIONALLY WITH "YEAH" AND "NO" BUT IS OTHERWISE NONVERBAL. EDEMA NOTED IN RIGHT FOOT. HEEL PROTECTORS IN PLACE. 0.5 CM MIDBACK STAGE 2 PRESSURE ULCER PRESENT, ALLEVYN DRESSING CHANGED. REDDENED AREA BETWEEN BUTTOX NOTED, PT REPOSITIONED Q2 HOURS ADN PRN. PT EXHIBITS FACIAL EXPRESSION CHANGES WHEN IN PAIN, FAMILY NOTIFIES RN WHEN PAIN MEDICAITONS NEEDED. MORPHINE ADMINISTERED, 5MG SUBLINGUAL, X2 TODAY. PT BEDRIDDEN. NASIM LIFT NEEDED FOR MOVING.
--- NOTE | 2017-12-26 18:06 | NUR ---
THIS RN, AND LOBO RN, TO PT ROOM TO TURN PT. PT TURNED TO RIGHT SIDE, PILLOWS SUPPORTING. PT AWAKENS AND OPENS EYES. PT STATES "YEAH" WHEN ASKED IF HE IS COMFORTABLE. PT FALLS QUICKLY BACK TO SLEEP. RR 16 BREATS PER MINUTE. DIATARY CALLED TO BRING SUPPLIES TO REFRESH COMFORT FOOD TRAY FOR FAMILY. BED RAILS UP. CALL LIGHT WITHIN REACH.
--- NOTE | 2017-12-26 19:10 | NUR ---
RECEIVED REPORT, PT IS RESTING WITH EYES CLOSED, RESPIRATIONS EVEN AND NONLABORED. FAMILY MEMBER IS IN ROOM. NO REQUESTS AT THIS TIME.
--- NOTE | 2017-12-26 20:30 | NUR ---
ASSESSED AND REPOSITIONED PT. HE RESPONDS TO QUESTIONS AT TIMES WITH MOANS OR "YEAH" AND "NO". FAMILY IS IN THE ROOM. CALL LIGHT IS WITHIN REACH ORAL CARE PROVIDED. PT & FAMILY HAVE NO REQUESTS AT THIS TIME.
--- NOTE | 2017-12-26 22:40 | NUR ---
REPOSITIONED PT AND PROVIDED ORAL CARE. CALL LIGHT WITHIN REACH, FAMILY MEMBER IN ROOM.
--- NOTE | 2017-12-26 23:35 | NUR ---
REPOSITIONED PT, HE GRIMMACED AND WHEN ASKED IF HE HAS PAIN SAID "YEAH". THIS RN ADMINISTERED 5MG SL MORPHINE, DOUBLE VERIFIED WITH ROBBY WHITE.
--- NOTE | 2017-12-27 01:25 | NUR ---
PT REPOSTITIONED IN BED AND HOB ELEVATED PT WAS COUGHING. NO FURTHER REQUESTS AT THIS TIME. CALL LIGHT WITHIN REACH.
--- NOTE | 2017-12-27 04:14 | NUR ---
REPOSITIONED PT AND PROVIDED CHAPSTICK. PT DID NOT RESPOND WHEN ASKED IF HE WANTED A SIP OF WATER. PT IS RESTING IN BED WITH EYES OPEN AT THIS TIME AND DOES NOT SHOW ANY SIGNS OF PAIN. CALL LIGHT IS WITHIN REACH. FAMILY MEMBER IN ROOM SLEEPING.
--- NOTE | 2017-12-27 04:25 | NUR ---
PT AWAKE ON AND OFF THROUGH THE NIGHT WHEN TURNING Q2H AND PROVIDING ORAL CARE. PT HAS ALLEVYN ON COOCYX AND HEEL PROTECTORS IN PLACE. PT REQUIRED 5MG SL MORPHINE ONCE WHEN HE WAS GRIMACING, WHEN ASKED IF HE WAS IN PAIN HE SAID "YEAH". CHRONIC GONZALEZ CATH IN PLACE AND URINE OUTPUT REMAINS LOW. DAUGHTER STAYED WITH PT THROUGH THE NIGHT.
--- NOTE | 2017-12-27 07:38 | NUR ---
CHECKED IN WITH PT. DAUGHTER AT BEDSIDE. PT RESTING WITH EYES CLOSED, RR 18 BPM. CLEAR INSURE WITH ICE PROVIDED PER FAMILY REQUEST. FAMILY STATES THAT PT SEEMS COMFORTABLE. NO ADDTIONAL REQUESTS OR COMPLAINTS AT THIS TIME.
--- NOTE | 2017-12-27 09:00 | NUR ---
RN IN ROOM TO REPOSISTION PATIENT. NO OTHER NEEDS AT THIS TIME.
--- NOTE | 2017-12-27 10:12 | NUR ---
CALLED THIS RN TO BEDSIDE. REQUESTS EYE DROPS BE GIVEN AND CGB TO BE TAKEN. CBG READS 156 WHICH STATES "THATS RIGHT WITHIN HIS NORMAL RANGE." EYE DROPS GIVEN (SEE MAR). PT REPOSITIONED, NOW ON LEFT SIDE, PROPPED WITH PILLOWS AND AT 45 DEGREES. PT SAYES "YEAH" WHEN ASKED IF HE IS COMFORTABLE. ENSURE CLEAR IS PROVIDED, PT TAKES MULTIPLE SIPS AND THEN SAYS "NO" WHEN ASKED IF HE WOULD LIKE MORE. AND MARGIN TRIMMER AT BEDSIDE. BED RAILS UP. CALL LIGHT WITHIN REACH. GONZALEZ CATHETER EMPITED (100 ML DARK YELLOW URINE).
--- NOTE | 2017-12-27 10:30 | NUR ---
RN STATES THAT SHE REPOSISTIONED PATIENT WITH SECOND RN. NO OTHER NEEDS AT THIS TIME.
[2017-12-27] MEDS ORDERED: MORPHINE S100 MG/5 M SL ×2 (11:37)
--- NOTE | 2017-12-27 12:00 | NUR ---
PT TURNED. PT NOW SUPINE WITH HIPS FLOATED. SKIN ASSESSEMENT PERFORMED. ALLEVYN APPLIED TO COCCYX. PT DRIFTS BACK TO SLEEP AFTER TURNING. FAMILY STATES PT APPEARS COMFORTABLE. NO REQUESTS OR COMPLAINTS AT THIS TIME.
--- NOTE | 2017-12-27 13:11 | NUR ---
CHECKED IN WITH PT. HIS LALO WAS PRESENT, PT AWAKE AND AWARE OF MY PRESENCE. LALO MENTIONED THAT SHE IS WAITING TO SEE ABOUT PLACEMENT. I OFFERED A PRAYER, SHE FELT COMFORTED THAT THE HUMAN RESOURCES PROJECT COORDINATOR HAD BEEN BY. SHE THANKED ME FOR STOPPING, WILL CONTINUE TO FOLLOW NEEDED
--- NOTE | 2017-12-27 14:55 | NUR ---
BED BATH, LINEN CHANGE AND OTHER CARE PROVIDED BY 2 RNS. PT TOLERATED BUT EXHIBITS SIGNS OF PAIN (FACES SCALE 4/10) BY END OF CARE. SEE MAR FOR MEDICATION PROVIDED. PT DRINKING SIPS OF WATER AND STATES "YEA" WHEN ASKED IF HE WANTS MORE WATER BUT IS UNABLE TO SUCK WATER UP THE STRAW. FAMILY ENCOUARGED TO BRING WATER BOTTLE TO PT AFTER PERIODS OF REST. PT NOW RESTING WITH EYES CLOASED, RR 20 BPM. BED RAILS UP. BED LOWERED. CALL LIGHT WITHIN REACH. FAMILY AT BEDSIDE.
--- NOTE | 2017-12-27 15:09 | NUR ---
RN REPORTED THAT HER AND ANOTHER RN WAS JUST IN PATIENTS ROOM AND DID ALL ADL'S AND LINENS CHANGED. NO OTHER NEEDS.
--- NOTE | 2017-12-27 15:41 | NUR ---
AFTERNOON ASSESSMENT DONE. PT APPEARS COMFORTABLE (FACES PAIN SCALE 0/10). PT TOLERATING SIPS OF WATER. FAMILY LEFT TO RUN ERRANDS. BED RAILS UP. CALL LIGHT WITHIN REACH. PT NOW RESTING WITH EYES OPEN, RR 18BPM.
--- NOTE | 2017-12-27 15:57 | NUR ---
2RN ASSIST TO REPOSITION PT. PT NOW SUPINE, HIPS FLOATED, SEMIN VILLASENRO. PT RESTING WITH EYES CLOSED. RR 16 BPM. BED RAILS UP. CALL LIGHT WITHIN REACH.
--- NOTE | 2017-12-27 17:09 | NUR ---
PT ON COMFORT CARE TODAY. PLAN WAS FOR [facility] TO VISIT THIS AFTERNOON BUT THEY DID NOT COME. [facility] STATES THEY WERE BUSY TODAY BUT PLAN COME TOMORROW MORNING AT 9:30. PT APPEARED GENERALLY COMFORTALBE TODAY. ONLY PAIN NOTED WAS DURING BED BATH AND LINEN CHANGED, 5MG MORPHINE GIVEN WITH GOOD RESPONSE. EDEMA APPEARS TO BE RESOLVED IN LEFT FOOT. STAGE 2 PRESSURE ULCER ON MID BACK STILL PRESENT. STAGE 1 NONBLANCHING AREA OVER COCCYX AND BETWEEN BUTTOX APPEARS LARGER, ALLEVYN PLACED OVER AREA. PT CONTINUES TO BE MOSTLY NONVERBAL WITH OCCATIONAL USE OF "YEAH" AND "NO" WHEN QUESTIONED. FAMILY AT BEDSIDE MOST OF THE DAY. NO BOWEL MOVMENTS, MINIMAL URINE OUTPUT. PT ON CLEAR LIQUIDS FOR COMFORT.
--- NOTE | 2017-12-27 18:04 | NUR ---
PT TURNED, NOW ON LEFT SIDE. EYE DROPS GIVEN PER FAMILY REQUEST. PT RESTING WITH EYES CLOSED, RR 16 BPM. SON AT BEDSIDE. BED RAILS UP. CALL LIGHT WITHIN REACH. NO SIGNS OF DICOMFORT AT THIS TIME.
--- NOTE | 2017-12-27 19:05 | NUR ---
IN ROOM FOR REPORT, FAMILY AT BEDSIDE. PT IS RESTING IN BED WITH EYES CLOSED, NO REQUESTS AT THIS TIME, CALL LIGHT WITHIN REACH.
--- NOTE | 2017-12-27 21:00 | NUR ---
REPOSITIONED PT AND ASSESSED. DAUGHTER IS PRESENT AT BEDSIDE AND STATES HE APPEARS PALE. PT IS WARM AND RESPIRATIONS ARE REGULAR, LUNG SOUNDS ARE DIMINISHED. PT AND DAUGHTER DENY FURTHER NEEDS AT THIS TIME.
--- NOTE | 2017-12-27 23:22 | NUR ---
REPOSITIONED PT, DAUGHTER SLEEPING IN ROOM, AND NO REQUESTS AT THIS TIME.
--- NOTE | 2017-12-28 01:41 | NUR ---
WOKE PT WHEN THIS RN ENTERED THE ROOM TO REPOSITION HIM, ORAL CARE PROVIDED AND PT DOES NOT APPEAR TO BE IN ANY PAIN.
--- NOTE | 2017-12-28 04:13 | NUR ---
REPOSITIONED PT. HE DOES NOT APPEAR TO BE IN PAIN AND NOT ANSWERING WHEN ASKED. DAUGHTER IS IN ROOM AND WILL LET US KNOW IF SHE THINKS HE IS IN PAIN. GAVE SIPS OF ENSURE AND CHAPSTICK NO REQUESTS AT THIS TIME.
--- NOTE | 2017-12-28 05:06 | NUR ---
PT SLEPT THROUGH THE NIGHT WITH THE EXCEPTION OF WAKING WHEN TURNING Q2H AND PROVIDING ORAL CARE. ALLEYN ON COCCYX AND BACK PLACED BY DAY SHIFT RN ARE CDI. PT DID NOT APPEAR TO HAVE ANY PAIN ALL NIGHT AND DAUGHTER AGREED. WHEN ASKED PT DID NOT ANSWER. SIPS OF ENSURE WERE GIVEN FOR COMFORT. OUTPUT CONTINUES TO BE LOW AT 250 MLS THROUGH THE NIGHT. PT RESPONDS AT TIMES WITH "YEAH" OR "NO". BHANU IS SCHEDULED TO ASSESS PT AT 0930 THIS MORNING. PER REPORT FROM DAY SHIFT WE NEED TO CALL [facility] TO NOTIFY THEM.
--- NOTE | 2017-12-28 07:20 | NUR ---
BEDSIDE HANDOFF REPORT RECEIVED FROM SURVEY RESEARCH PROFESSOR RN. PT RESTING ON RIGHT SIDE, APPEARS COMFORTABLE. DAUGHTER AT BEDSIDE. FAMILY DENIES NEEDS AT THIS TIME.
--- NOTE | 2017-12-28 08:01 | NUR ---
FAMILY REQUESTING PAIN MEDICATION. PT WITH OCCASIONAL GRIMMACE. PT TURNED TO LEFT SIDE. ATTENDS CLEAN AND DRY. 5 MG SL MORPHINE GIVEN. PT DENIES NEEDS AT THIS TIME.
--- NOTE | 2017-12-28 10:55 | NUR ---
PATIENT LAYING IN BED. DAUGHTER AND IN ROOM, AND THEN LEFT. REPOSTITONED PATIENT ON BACK/FLOATED ON BOTH SIDES, ELEVATED HEAD OF BED. PILLOW BETWEEN LEGS. EMPTIED FOLLEY. CALL LIGHT IN REACH
--- NOTE | 2017-12-28 13:43 | NUR ---
PT ASLEEP. HE IS TO BE DC'D TO [facility] LATER THIS AFTERNOON. HIS DAUGHTER IN WITH HIM, KIND OF PICKING THINGS UP. GOOD VISIT-SHE TALKED ABOUT HER FATHER, WHAT IT WAS LIKE GROWING UP, GAINING HIS WORK ETHIC, AND LONGING FOR THE DAYS THEY WOULD DANCE TOGETHER.
--- NOTE | 2017-12-28 15:38 | NUR ---
FAMILY REQUESTING PAIN MEDICATION. PT WITH OCCASIONAL GRIMMACE, TENSE. 5MG SL MORPHINE GIVEN. FAMILY REQUESTING TO SPEAK TO HOSPICE ABOUT WHAT HSOPICE MEANS, CANDY FROM HOSPICE TO BEDSIDE ANSWERING QUESTIONS. FAMILY DENIES OTHER NEEDS AT THIS TIME.
--- NOTE | 2017-12-28 17:12 | NUR ---
REPORT CALLED TO INFORMATICS EDUCATOR AT [facility].
--- NOTE | 2017-12-28 17:17 | NUR ---
GAVE PATIENT BEDBATH, NEW ATTENDS AND GOWN. DIDNT CHANGE LINENS PATIENT WILL BE DICHARGING SOON. IN ROOM. DAUGHTER PRESENT ALSO. CHECKED OLMAN. REPOSTIONED PATIENT AND ELEVATED HEAD. CALL LIGHT IN REACH
--- NOTE | 2017-12-28 17:34 | NUR ---
DISCHARGE INSTRUCTIONS COMPLETED WITH AND DAUGHTER. DISCUSSED PAIN MEDICATION BEFORE TRANSPORTATION, FAMILY AGREES THAT THEY WOULD LIKE PAIN MEDICATION GIVEN BEFORE TRANSPORTATION. FAMILY DENIES OTHER NEEDS AT THIS TIME.
--- NOTE | 2017-12-28 18:00 | NUR ---
PT GIVEN 5 MG SL MORPHINE FOR PROPHYLAXIS TRANSPORTATION. DAUGHTER AT BEDSIDE, COLLECTING BELONINGS. DENIES OTHER NEEDS AT THIS TIME.
--- NOTE | 2017-12-28 18:38 | NUR ---
PT DISCHARGED TO [facility]. TRANSFERED TO [facility]. FAMILY ESCORTING PT.
== END 2017-12-28 18:40 | disposition hospice, inpatient (51) | DRG 865 ==
LOC: MS 11:00
PROVIDERS: ADMIT Internal Medicine
DX: J10.81 Influenza due to other identified influenza virus with encephalopathy (principal); G93.41 Metabolic encephalopathy; J96.00 Acute respiratory failure, unspecified whether with hypoxia or hypercapnia; F05 Delirium due to known physiological condition; N39.0 Urinary tract infection, site not specified; I47.2 Ventricular tachycardia; N17.9 Acute kidney failure, unspecified; F03.90 Unspecified dementia, unspecified severity, without behavioral disturbance, psychotic disturbance, mood disturbance, and anxiety; E78.5 Hyperlipidemia, unspecified; E11.9 Type 2 diabetes mellitus without complications; I48.91 Unspecified atrial fibrillation; K21.9 Gastro-esophageal reflux disease without esophagitis; N40.1 Benign prostatic hyperplasia with lower urinary tract symptoms; R34 Anuria and oliguria; Z79.4 Long term (current) use of insulin